=== PATIENT | male | born 1945 | race Caucasian/White ===

== ENCOUNTER → 2018-03-08 | Outpatient (CLI) | payer OTHER, SELFPAY ==
--- NOTE | 2018-03-10 17:52 | PM.PFT.1 ---
Pulmonary Function Test Referral & Results Date Patient Seen: 03/08/18 Results: The spirometry demonstrates an FVC of 1.53 L which is 35% of predicted. The FEV1 was measured at 1.11 L which is 35% of predicted. The FEV1/FVC ratio was 72 which is 99% of predicted. Following the administration of bronchodilator there was at 32% improvement in FEV1 and a 142% improvement in FEF 25-75%. Lung volumes show an SVC of 1.49 L which is 32% of predicted. No diffusing capacity was performed The maximum voluntary ventilation was reduced. Interpretation: This study demonstrates severe obstructive lung disease with evidence of significant benefit following bronchodilator administration There is also severe restrictive lung disease present.
== END ==
PROVIDERS: Visit Provider Internal Medicine
DX: R06.00 Dyspnea, unspecified (principal)
CPT/HCPCS: 94010; 94060; 94726